=== PATIENT | female | born 1955 | race Caucasian/White ===

== ENCOUNTER → 2017-05-02 | Outpatient (CLI) | payer MEDICAID ==
--- NOTE | 2017-05-02 22:14 | MR ---
EXAMINATION TYPE: MR lumbar spine wo con DATE OF EXAM: 05/02/2017 COMPARISON: Lumbar spine x-ray May 06, 2014 HISTORY: Low back pain, intervertebral disc degeneration, and lumbar as well as left lower extremity radiculopathy all per order. Sciatic pain for 9 months causing pain into left lower extremity per pat ient. TECHNIQUE: Multiplanar, multisequence imaging of the lumbar spine is performed without IV contrast. FINDINGS: Sagittal images of the lumbar spine show vertebral body heights and alignment to appear sat isfactory. Multilevel disc desiccation is seen. There is mild disc space narrowing L5-S1 level otherw ise disc space heights are maintained. Posterior disc herniation is seen at this level on sagittal im ages. Smaller disc herniation is noted L4-L5 level with increased signal posteriorly consistent with annular tear. The conus medullaris is normal in position and signal ending at inferior L1 level. Th e bone marrow signal intensity is within normal limits. No significant spurring is seen. Axial images show the T12-L1, L1-L2, L2-L3, and L3-L4 levels to appear within normal limits. Axial images at the L4-L5 level shows mild broad-based posterior disc protrusion mildly effaces the a nterior thecal sac. There is mild facet degenerative changes bilaterally. There is mild left greater than right anterior inferior neural foraminal narrowing at this level identified. Axial images at L5-S1 level show [id number] facet degenerative changes bilaterally. There is br oad disc bulge with left paracentral disc protrusion component. There is effacement of the anterior l ateral thecal sac and lateral recess. Bilateral neural foramina are patent. Effacement of the left S1 nerve is felt present on axial image 3. No suspicious retroperitoneal findings are seen. IMPRESSION: Multilevel degenerative changes in the lower lumbar spine as detailed above, attention to the L5-S1 level where most prominent left paracentral disc protrusion effaces lateral recess and bel ieve central left S1 nerve.
== END | disposition home or self-care (01) ==
LOC: RADMRIMAIN 17:36
PROVIDERS: ATTEND Physical Medicine & Rehabilitation
DX: M51.17 Intervertebral disc disorders with radiculopathy, lumbosacral region (principal); M47.27 Other spondylosis with radiculopathy, lumbosacral region
CPT/HCPCS: 72148

== ENCOUNTER → 2018-08-22 | Outpatient (CLI) | payer MEDICAID ==
[2018-08-22 16:51] LABS: ALT 19 U/L (8-44); AST 28 U/L (13-35)
== END | disposition home or self-care (01) ==
LOC: LABWHC1 09:02
PROVIDERS: ATTEND Podiatrist Foot & Ankle Surgery
DX: K74.60 Unspecified cirrhosis of liver (principal)
CPT/HCPCS: 36415; 84450; 84460

== ENCOUNTER → 2018-10-20 | Outpatient (CLI) | payer MEDICAID ==
[2018-10-20 19:14] LABS: ALT 25 U/L (8-44); AST 37 U/L (13-35)
== END | disposition home or self-care (01) ==
LOC: LABWHC1 10:59
PROVIDERS: ATTEND Podiatrist Foot & Ankle Surgery
DX: K74.60 Unspecified cirrhosis of liver (principal)
CPT/HCPCS: 36415; 84450; 84460

== ENCOUNTER → 2021-02-27 | Outpatient (CLI) | payer MEDICAID, OTHER | END | disposition home or self-care (01) | LOC: LABWHC1 09:33 | PROVIDERS: ATTEND Emergency Medicine | DX: U07.1 COVID-19 (principal) | CPT/HCPCS: 87635 ==

== ENCOUNTER → 2021-05-27 | Outpatient (CLI) | payer MEDICAID ==
[2021-05-27 14:08] LABS: Basophils # (A) 0.04 X 10*3/uL (0.00-0.10); Basophils % (A) 0.9 %; Eosinophils # (A) 0.09 X 10*3/uL (0.04-0.35); Eosinophils % (A) 2.1 %; HCT 39.1 % (37.2-46.3); HGB 12.6 g/dL (12.0-15.0); Immature Grans, Automated 0.2 %; Lymphocytes % (A) 32.1 %; MCH 28.3 pg (27.0-32.0); MCHC 32.2 g/dL (32.0-37.0); MCV 87.7 fL (80.0-97.0); Monocytes # (A) 0.35 X 10*3/uL (0.20-1.00); NRBC Per 100 WBC 0 /100 WBCS (0.0-0.0); Neutrophils # (A) 2.47 X 10*3/uL (1.80-7.70); Neutrophils % (A) 56.7 %; Platelet Count 210 X 10*3/uL (140-440); RBC 4.46 X 10*6/uL (4.10-5.20); RDW 12.9 % (11.5-14.5); WBC 4.36 X 10*3/uL (4.50-10.00)
[2021-05-27 14:27] LABS: ALT 18 U/L (8-44); AST 25 U/L (13-35); African American GFR (CKD) 78.9 (60.0-200.0); Albumin 4.2 g/dL (3.8-4.9); Albumin/Globulin Ratio 1.68 (1.60-3.17); Alkaline Phosphatase 69 U/L (41-126); BUN/Creat Ratio 15.56 Ratio (12.00-20.00); Calcium 9.2 mg/dL (8.7-10.3); Carbon Dioxide 22.8 mmol/L (20.0-27.5); Chloride 104 mmol/L (96-109); Chol/HDL Ratio 3.31 Ratio; Globulin 2.5 g/dL (1.6-3.3); Glucose 102 mg/dL (70-110); LDL Cholesterol,Calculated 143.9 mg/dL (0.0-131.0); Potassium 4.4 mmol/L (3.5-5.5); Sodium 139 mmol/L (135-145); Total Protein 6.7 g/dL (6.2-8.2); VLDL Calculation 15.24 mg/dL (5.00-40.00)
== END | disposition home or self-care (01) ==
LOC: LABWHC1 09:44
PROVIDERS: ATTEND Internal Medicine
DX: Z00.00 Encounter for general adult medical examination without abnormal findings (principal); M85.80 Other specified disorders of bone density and structure, unspecified site
CPT/HCPCS: 36415; 80053; 80061; 82306; 84443; 85025

== ENCOUNTER 2021-06-06 05:57 | Day surgery (SDC) | payer MEDICAID, OTHER ==
[2021-06-02 10:52] VITALS: BMI 31.1
[~2021-06-06 05:57] MED LIST: LACTATED RINGERS 1,000 ML IV SCH; LIDOCAINE 1% (10MG/ML) FOR IV START INTRADERMA PRN
[2021-06-06 06:23] VITALS: TEMP 97.3
[2021-06-06] MEDS ORDERED: LIDOCAINE 1% INJ 10MG/ML (20 ML MDV) ONE (07:03)
[2021-06-06] MEDS ORDERED: PROPOFOL 10 MG/ML 20 ML VIAL IV ONE (07:03)
--- NOTE | 2021-06-06 07:25 | P.PCN ---
Date of Procedure: 06/06/21 Procedure(s) Performed: Brief history: Patient is a pleasant 65-year-old white female scheduled for an elective upper endoscopy as well as colonoscopy as a part of evaluation of long-standing history of GERD and screening for colorectal neoplasia Procedure performed: Esophagogastroduodenoscopy with biopsy Colonoscopy Preoperative diagnosis: GERD Screening for colon cancer Anesthesia: MAC Procedure: After informed consent was obtained from the patient was brought into the endoscopy unit and IV sedation was administered by anesthesia under continuous monitoring. Initially upper endoscopy was done. The Olympus GF 160 video endoscope was inserted inserted into the mouth and esophagus intubated without any difficulty and was gradually advanced into the stomach and duodenum and carefully examined. The bulb and second part of the duodenum appeared normal. The scope was then withdrawn into the stomach adequately insufflated with air and upon careful examination the antrum had mild mottling of the mucosa and biopsies were done from this area. The body, cardia and fundus appeared normal. The scope was then withdrawn into the esophagus. The GE junction was located at 40 cm to the incisors. small sliding-type well hernia noted. There where 2 superficial erosions in the distal esophagus consistent with LA grade B reflux esophagitis. Rest of the esophagus appeared normal. Patient tolerated the procedure well. At this time the patient continued to remain sedation. Initial digital rectal examination was normal. Olympus CF 160 video colonoscope was then inserted into the rectum and gradually advanced to the cecum without any difficulty. Careful examination was performed as the scope was gradually being withdrawn. The prep was excellent. The cecum, ascending colon, transverse colon, descending colon, sigmoid colon and rectum appeared normal. Retroflexion was performed in the rectum and no lesions were noted. Patient tolerated the procedure well. Impression: 1. Upper endoscopy revealed mild antral gastritis, LA grade B reflux esophagitis and small hiatal hernia 2. Colonoscopy was within normal limits with no evidence of colitis or colorectal Recommendations: Findings of this examination were discussed with the patient as well as her family. She was advised to follow with the biopsy results.. Advised to increase the Pepcid to 40 mg daily and follow antireflux measures. Recommended a repeat screening colonoscopy in 10 years.
[2021-06-06 07:51] VITALS: BP 128/84; PULSE 64; RESP 16
== END 2021-06-06 08:10 | disposition home or self-care (01) ==
LOC: ORWHC2ENDO 05:57
PROVIDERS: ATTEND Internal Medicine Gastroenterology
DX: Z12.11 Encounter for screening for malignant neoplasm of colon (principal); K29.50 Unspecified chronic gastritis without bleeding; K44.9 Diaphragmatic hernia without obstruction or gangrene; Z79.899 Other long term (current) drug therapy; Z88.0 Allergy status to penicillin
CPT/HCPCS: 88305; 43239; J2001; J2704; G0121

== ENCOUNTER → 2021-07-07 | Outpatient (CLI) | payer MEDICAID ==
--- NOTE | 2021-07-10 13:46 | BD ---
EXAMINATION TYPE: Axial Bone Density DATE OF EXAM: 07/07/2021 COMPARISON: NONE CLINICAL HISTORY: 65 years year old Female. ICD-10 CODE: M85.80 OSTEOPENIA Height: 5 FT 5 IN Weight: 185 FRAX RISK QUESTIONS: Alcohol (3 or more units per day): NO Family History (Parent hip fracture): NO Glucocorticoids (More than 3mos): NO (Ex: prednisone, prednisolone, methylprednisolone, dexamethasone, and hydrocortisone). History of Fracture in Adulthood: YES Secondary Osteoporosis: 1. Type 1 Diabetes: NO 2. Hyperthyroidism: NO 3. Menopause before 45: NO 4. Malnutrition: NO 5. Chronic liver disease: NO Rheumatoid Arthritis: NO Current Tobacco Use: NO RISK FACTORS HISTORY OF: History of Wrist Fracture: RT WRIST When: 9 YEARS AGO CAST ONLY Surgery to Spine/Hip(right/left)/Wrist (right/left): NO Family History of Osteoporosis: NO Active: YES Diet low in dairy products/other sources of calcium: NO Postmenopausal woman: YES Take estrogen and/or progesterone medications: NO Lost more than 2 inches in height since high school: NO Frequent falls: NO Poor Health: GOOD Hyperparathyroidism: NO Adrenal Insufficiency: NO MEDICATIONS: Additional Medications: NONE Additional History: EXAM MEASUREMENTS: Bone mineral densitometry was performed using the [employer]. Bone mineral density as measured about the Lumbar spine is: ----- L1-L4(G/cm2): 0.819 T Score Values are as follows: ----- L1: -2.5 ----- L2: -3.8 ----- L3: -2.9 ----- L4: -3.1 ----- L1-L4: -3.0 Bone mineral density has: DECREASED -13.2 % since study of: 2010 Bone mineral density about the R hip (g/cm2): 0.841 Bone mineral density about the L hip (g/cm2): 0.793 T Score values are as follows: -----R Neck: -1.4 -----L Neck: -1.8 -----R Total: -1.7 -----L Total: -1.6 Bone mineral density has: DECREASED -6.1 % since study of: 2010 FRAX%s: The graph provided illustrates a 15.4 % chance for a major osteoporotic fx and a 1.9 % chance for the hips probability for fx in 10 years time. 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 NOTE: T-SCORE=SD OF THE YOUNG ADULT MEAN.
== END | disposition home or self-care (01) ==
LOC: RADBDWWP 16:09
PROVIDERS: ATTEND Internal Medicine
DX: M81.0 Age-related osteoporosis without current pathological fracture (principal); M85.89 Other specified disorders of bone density and structure, multiple sites
CPT/HCPCS: 77080

== ENCOUNTER → 2021-07-20 | Outpatient (CLI) | payer MEDICAID ==
--- NOTE | 2021-07-24 11:33 | MM ---
Reason for exam: screening (asymptomatic). Last mammogram was performed 11 years ago. History: Patient is postmenopausal. Physical Findings: A clinical breast exam by your physician is recommended on an annual basis and results should be correlated with mammographic findings. MG 3D Screening Mammo W/Cad Bilateral CC and MLO view(s) were taken. Prior study comparison: August 03, 2010, bilateral digital screening mammo w/CAD. July 16, 2007, bilateral digital screening mammogram. The breast tissue is heterogeneously dense. This may lower the sensitivity of mammography. No significant changes when compared with prior studies. ASSESSMENT: Benign, BI-RAD 2 RECOMMENDATION: Routine screening mammogram of both breasts in 1 year.
== END | disposition home or self-care (01) ==
LOC: RADMAMWWP 16:49
PROVIDERS: ATTEND Internal Medicine
DX: Z12.31 Encounter for screening mammogram for malignant neoplasm of breast (principal); Z78.0 Asymptomatic menopausal state
CPT/HCPCS: 77063; 77067

== ENCOUNTER → 2022-07-26 | Outpatient (CLI) | payer BC ==
--- NOTE | 2022-07-27 07:10 | MM ---
Reason for Exam: Screening (asymptomatic). Last screening mammogram was performed 12 month(s) ago. Patient History: Menarche at age 14. First Full-Term at age 24. Postmenopausal. Risk Values: Bertha 5 year model risk: 1.4%. NCI Lifetime model risk: 5.8%. Prior Study Comparison: 07/16/2007 Bilateral Screening Mammogram, [facility]. 08/03/2010 Bilateral Screening Mammogram, [facility]. 07/20/2021 Bilateral Screening Mammogram, [facility]. Tissue Density: The breast tissue is heterogeneously dense. This may lower the sensitivity of mammography. Findings: Analyzed By CAD. Benign-appearing vascular and linear calcifications bilaterally are redemonstrated. Benign-appearing bilateral axillary lymph nodes are again seen. There is no suspicious group of microcalcifications or new suspicious mass in either breast. Overall Assessment: Benign, BI-RAD 2 Management: Screening Mammogram of both breasts in 1 year. . Patient should continue monthly self-breast exams. A clinical breast exam by your physician is recommended on an annual basis. This exam should not preclude additional follow-up of suspicious palpable abnormalities. Note on Bertha scores and lifetime risk: 1. A Bertha score greater than 3% is considered moderate risk. If this is the case, consider specialist referral to assess eligibility for a risk reducing agent. 2. If overall lifetime risk for the development of breast cancer is 20% or higher, the patient may qualify for future screening with alternating mammogram and breast MRI. Electronically signed and approved by: Chauncey Shay M.D.
== END | disposition home or self-care (01) ==
LOC: RADMAMWWP 09:02
PROVIDERS: ATTEND Internal Medicine
DX: Z12.31 Encounter for screening mammogram for malignant neoplasm of breast (principal); Z78.0 Asymptomatic menopausal state
CPT/HCPCS: 77063; 77067

== ENCOUNTER → 2024-06-30 | Outpatient (CLI) | payer MEDICARE ==
--- NOTE | 2024-06-30 11:49 | BD ---
EXAMINATION TYPE: Axial Bone Density DATE OF EXAM: 06/30/2024 CLINICAL HISTORY: 68 years old Female. ICD-10 CODE: M81.0 AGE-RELATED OSTEOPORO , Additional Histor y: Height: 65 Weight: 175.5 FRAX RISK QUESTIONS: Alcohol (3 or more units per day): no Family History (Parent hip fracture): no Glucocorticoids (More than 3mos): no (Ex: prednisone, prednisolone, methylprednisolone, dexamethasone, and hydrocortisone). History of Fracture in Adulthood: rt wrist, clavicle Secondary Osteoporosis: 1. Type 1 Diabetes: no 2. Hyperthyroidism: no 3. Menopause before 45: no 4. Malnutrition: no 5. Chronic liver disease: no Rheumatoid Arthritis: no Current Tobacco Use: no RISK FACTORS HISTORY OF: Hip Fracture (Right/Left): no Spine Fracture: no History of Wrist Fracture: RT Wrist When: 10 years Surgery to Spine/Hip(right/left)/Wrist (right/left): no MEDICATIONS: Thyroid Medications: no Osteoporosis Medications: Yes one pill monthly Which medication: ? name How Long: past year EXAM MEASUREMENTS: Bone mineral densitometry was performed using the [employer]. Bone mineral density as measured about the Lumbar spine is: ----- L1-L4(G/cm2): 0.848 T Score Values are as follows: ----- L1: -3.2 ----- L2: -2.3 ----- L3: -2.6 ----- L4: -3.1 ----- L1-L4: -2.8 Z Score Values are as follows: ----- L1: -2.1 ----- L2: -1.2 ----- L3: -1.5 ----- L4: -2.0 ----- L1-L4: -1.6 Bone mineral density has: increased 3.5 % since study of: 07/07/2021 Bone mineral density about the R hip (g/cm2): 0.837 Bone mineral density about the L hip (g/cm2): 0.829 T Score values are as follows: -----R Neck: -1.4 -----L Neck: -1.4 -----R Total: -1.4 -----L Total: -1.4 Z Score values are as follows: -----R Neck: -0.2 -----L Neck: -0.2 -----R Total: -0.4 -----L Total: -0.5 Bone mineral density has: increased 4.0 % since study of: 11/20/2021 FRAX%s: The graph provided illustrates a 14.7% chance for a major osteoporotic fx and a 1.6% chance f or the hips probability for fx in 10 years time. IMPRESSION: Osteoporosis (T Score less than -2.5). There is increased fracture risk and therapy is usually indicated based on age. Re-Screen 1-2 years. NOTE: T-SCORE=SD OF THE YOUNG ADULT MEAN. [facility], , 06/30/2024 11:47 AM
--- NOTE | 2024-07-02 13:50 | MM ---
Reason for Exam: Screening (asymptomatic). Last mammogram was performed 2 year(s) and 0 month(s) ago. Patient History: Menarche at age 14. First Full-Term at age 24. Postmenopausal. Risk Values: Bertha 5 year model risk: 1.5%. NCI Lifetime model risk: 5.4%. Prior Study Comparison: 08/03/2010 Bilateral Screening Mammogram, [facility]. 07/20/2021 Bilateral Screening Mammogram, [facility]. 07/26/2022 Bilateral MG 3D screening mammo w/cad, [facility]. Tissue Density: The breasts are heterogeneously dense, which may obscure small masses. Findings: Analyzed By CAD. There is no suspicious group of microcalcifications or new suspicious mass in either breast. Overall Assessment: Benign, BI-RAD 2 Management: Screening Mammogram of both breasts in 1 year. . Patient should continue monthly self-breast exams. A clinical breast exam by your physician is recommended on an annual basis. This exam should not preclude additional follow-up of suspicious palpable abnormalities. Note on Bertha scores and lifetime risk: 1. A Bertha score greater than 3% is considered moderate risk. If this is the case, consider specialist referral to assess eligibility for a risk reducing agent. 2. If overall lifetime risk for the development of breast cancer is 20% or higher, the patient may qualify for future screening with alternating mammogram and breast MRI. [facility], , 06/30/2024 10:49 AM. Electronically signed and approved by: Benoit Amaya M.D. [facility]
== END | disposition home or self-care (01) ==
LOC: RADMAMWWP 10:25
PROVIDERS: ATTEND Internal Medicine
DX: Z12.31 Encounter for screening mammogram for malignant neoplasm of breast (principal); M81.0 Age-related osteoporosis without current pathological fracture; R92.333 Mammographic heterogeneous density, bilateral breasts; Z78.0 Asymptomatic menopausal state
CPT/HCPCS: 77063; 77067; 77080